=== PATIENT | female | born 1950 | race Caucasian/White ===

== ENCOUNTER 2024-07-12 11:48 | Day surgery (SDC) | payer MEDICARE, SELFPAY ==
--- NOTE | 2024-07-03 11:25 | PCM.HP.BLA ---
History and Physical Date of Admission: 07/12/24 HPI: The patient is a 74 year old female presenting for pre-operative visit. She is scheduled for hysteroscopy D&C with possible polyp resection, for thickened endometrium on pelvic ultrasound and suspected endometrial polyp on 07/12/2024. Procedure discussed along with risks, benefits and complications. Other alternatives discussed for management. Consent form signed? No PAST MEDICAL HISTORY PAST MEDICAL HISTORY Diagnosis Date ? 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 Anxiety and depression ? Arthritis ? Bilateral malignant neoplasm of overlapping sites of breast in female (HCC) ? COAG (chronic open-angle glaucoma) ? Hyperlipidemia ? ADEEL (obstructive sleep apnea) ? Paroxysmal atrial fibrillation (HCC) ? PONV (postoperative nausea and vomiting) ? Reflux esophagitis PAST SURGICAL HISTORY PAST SURGICAL HISTORY Procedure Laterality Date ? AFIB PVI W/COMPL EP STUDY 01/2020 ? BREAST LUMPECTOMY HX Bilateral ? PAST SURGICAL HISTORY OF bilateral mastectomy ? PAST SURGICAL HISTORY OF skin flap for breast cancer ? REMV LUNG,WEDGE RESECTION Right 02/2021 ? RHINOPLASTY W/SEPTAL REPAIR ? TOTAL HIP REPLACEMENT Bilateral CURRENT MEDICATIONS Current Outpatient Medications Medication Sig Dispense Refill ? cyclobenzaprine (FLEXERIL) 10 mg tablet Take 10 mg by mouth. ? traMADol (ULTRAM) 50 mg tablet Take 50 mg by mouth three times a day as needed. ? naloxone 4 mg/actuation nasal spray (NARCAN) Use 4 mg in the nose. ? biotin 5,000 mcg subl Dissolve 5,000 mcg under the tongue once daily. patient swallows ? omega-3 DHA-EPA (FISH OIL) 1,200 (144-216) mg capsule Take 1 capsule by mouth daily with breakfast. ? ZINC ACETATE ORAL Take by mouth. ? calcium carbonate (CALTRATE) 600 mg calcium (1,500 mg) tab Take 600 mg by mouth two times a day. ? folic acid 0.8 mg cap Take 0.8 mg by mouth once daily. ? cholecalciferol (VITAMIN D-3) 50 mcg (2,000 unit) tablet Take 4,000 Units by mouth once daily. ? ferrous sulfate (TORRI-IRON ORAL) Take 18 mg by mouth once daily. ? latanoprost (XALATAN) 0.005 % ophthalmic solution Use 1 Drop in both eyes daily at bedtime. 7.5 mL 3 ? rOPINIRole (REQUIP) 0.5 mg tablet Take 1 mg by mouth daily at bedtime. ? ELIQUIS 5 mg tab(s) Take 1 tablet by mouth twice daily. Okay to restart on 11/27/2021 ? vit C/E/Zn/coppr/lutein/zeaxan (PRESERVISION AREDS-2 ORAL) Take by mouth once daily. ? metoprolol tartrate, short acting, (LOPRESSOR) 50 mg tablet Take 1 tablet by mouth every 8 hours. ? atorvastatin (LIPITOR) 10 mg tablet 20 mg once daily. ? pantoprazole DR (PROTONIX) 40 mg tablet Take 40 mg by mouth once daily. No current facility-administered medications for this visit. ALLERGIES: Penicillins, Adhesive Tape (Rosins), and Nickel PERSONAL HISTORY: SOCIAL HISTORY Social History Tobacco Use ? Smoking status: Never ? Smokeless tobacco: Never Vaping Use ? Vaping status: Never Used Substance Use Topics ? Alcohol use: Not Currently Alcohol/week: 5.9 standard drinks of alcohol Types: 2 Glasses of Wine (5oz), 3 Mixed Drinks per week ? Drug use: No FAMILY HISTORY: FAMILY HISTORY FAMILY HISTORY Problem Relation Age of Onset ? Cancer Mother ? Cancer Father ? Cataract Maternal Grandfather REVIEW OF SYMPTOMS: GENERAL: denies fevers or chills ENDOCRINOLOGY: has not been on steroids Cardiology : denies palpitations or chest pain Respiratory: denies SOB or cough Hematology: denies history of prolonged bleeding or easy bruising or VTE Allergy: Denies history of personal or family history of allergy to anesthesia PHYSICAL EXAMINATION: VITALS: There were no vitals taken for this visit. GENERAL: The patient is well nourished, well hydrated in no acute distress. , The patient is oriented to time, place, and person. IMPRESSION: Thickened endometrium, suspected endometrial polyp PLAN: The risks/benefits/alternatives and personal involved for the planned hysteroscopy D&C with possible polyp resection were reviewed with the patient. Her questions were answered to her satisfaction and she desires to proceed. Consent will be signed day of surgery. I reviewed with her postop instructions and expectations. I have reviewed and updated past medical and surgical history, medications and allergies Assessment & Plan Assessment/Plan (1) Endometrial thickening on ultrasound: (2) Endometrial polyp:
--- NOTE | 2024-07-09 22:14 | PAT.ANE_ITS ---
Pre-Assessment Diagnosis/Proposed Procedure Planned Operative Procedure(s): Hysteroscopy,Dilation and Curettage Anesthesia History Anesthesia History - shearer screen measurer and trimmer: Anesthesia History - shearer screen measurer and trimmer Hx Hospitalization No 07/09/24 15:19 Any Problems With Anesthesia No 07/09/24 15:19 Cholinesterase deficiency No 07/09/24 15:19 You/Your Family Experience No 07/09/24 15:19 fever (hyperthermia) with Relationship Recent Exposure to Contagious Disease Does patient have nerve No 07/09/24 15:19 stimulator Patient instructed to have device shut off --Does patient have Pacemaker or ICD? When Was Last Pacemaker Check QUESTION #4 FULL TEXT: You/Your Family Experience fever (hyperthermia) with Anesthesia Last Oral Intake Last Oral intake: Last Oral Intake NPO since Meds taken in AM with sips of water? Meds patient instructed to take am of surgery PONV PONV - shearer screen measurer and trimmer: PONV - shearer screen measurer and trimmer Female Yes 07/09/24 15:19 HX of Motion Sickness Yes 07/09/24 15:19 HX of N/V After Surgery Yes 07/09/24 15:19 Non-Smoker Yes 07/09/24 15:19 Duration of Surgery greater No 07/09/24 15:19 than 60 minutes Number of Risk Factors 4 07/09/24 15:19 PONV Score Severe Risk 07/09/24 15:19 Respiratory Assessment Respiratory Assessment - shearer screen measurer and trimmer: Respiratory Tract Infection Hx - shearer screen measurer and trimmer Hx Respiratory Tract Infection No 07/09/24 15:19 STOP Sleep Apnea STOP Sleep Apnea - shearer screen measurer and trimmer: STOP Sleep Apnea - shearer screen measurer and trimmer Hx Hypertension No 07/09/24 15:19 Hx Sleep Apnea No 07/09/24 15:19 CPAP BIPAP Do you snore loudly (louder No 07/09/24 15:19 than talking or can be heard Do you often feel tired/ No 07/09/24 15:19 fatigued/ sleepy during daytime? Has anyone observed you stop No 07/09/24 15:19 breathing during sleep? STOP Results Negative 07/09/24 15:19 QUESTION #5 FULL TEXT : Do you snore loudly (louder than talking or can be heard through closed doors)? 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 Specify any problems Hx of Preganancy in last 3 N/A 07/09/24 15:19 Months Nurse Filling Out Transfusion NBUCHER 07/09/24 15:19 & Questions: Date: 07/09/24 07/09/24 15:19 Time: 07/09/24 15:19 Patient unable to answer at this time (ie. confused, unrespo /Reproduction History /Reproductive History - shearer screen measurer and trimmer: /Reproductive Hx- shearer screen measurer and trimmer Hx Now No 07/09/24 15:19 Gestational Age (in weeks): EDC: Hx Hx Para Hx Section SAB No 07/09/24 15:19 PFSH Medical History (Updated 07/09/24 @ 15:38 by Alice Garcia) CPAP (continuous positive airway pressure) dependence Sleep apnea Wears hearing aid Loss of hearing Wears glasses PONV (postoperative nausea and vomiting) Depression Anxiety Arthritis Low iron High cholesterol Post-menopausal Migraine headache Restless legs History of hiatal hernia Diverticulosis Non-smoker GERD (gastroesophageal reflux disease) History of echocardiogram Cardiology follow-up encounter History of atrial fibrillation Cancer Home Medications ?Medication ?Instructions ?Recorded ?Last Taken ?Type acetaminophen 500 mg tablet 1,000 mg PO Q8H PRN PRN pain 07/09/24 07/09/24 History (Acetaminophen Extra Strength) apixaban 5 mg tablet (Eliquis) 5 mg PO BID 07/09/24 07/09/24 History atorvastatin 10 mg tablet 10 mg PO QHS 07/09/24 07/09/24 History cyclobenzaprine 10 mg tablet 10 mg PO QHS 07/09/24 07/09/24 History latanoprost 0.005 % eye drops 1 drp ophthalmic (eye) DAILY 07/09/24 Unknown History metoprolol tartrate 50 mg tablet 50 mg PO TID 07/09/24 07/09/24 History pantoprazole 40 mg tablet,delayed 40 mg PO DAILY 07/09/24 07/09/24 History release phenylephrine HCl 10 mg tablet 10 mg PO Q6H 07/09/24 Unknown History ropinirole 1 mg tablet 1 mg PO TID 07/09/24 07/09/24 History tramadol 50 mg tablet 50 mg PO Q8H PRN PRN severe pain 07/09/24 07/09/24 History vit C 250 mg-vit E 90 mg-zinc 40 1 tab PO BID 07/09/24 07/09/24 History mg-copper 1 [id number] capsule (PreserVision AREDS-2) Allergy/AdvReac Type Severity Reaction Status Date / Time Penicillins (PCN) AdvReac Severe HIVES Verified 07/09/24 15:10 adhesive tape AdvReac Mild Rash Verified 07/09/24 15:10 Surgical History History of rhinoplasty History of lung surgery History of cardiac ablation for atrial fibrillation History of right mastectomy History of bilateral hip replacements Social History Smoking Status: Never smoker Audit: Pertinent Findings Pertinent Findings Consult pertinent findings: October 31, 2023. Dr. Carlos Morrissey cardiology-1. Atrial fibrillation-patient is status post cryoablation. No recurrence since then. Patient is to continue rate control and anticoagulation strategy with apixaban and metoprolol. Recommendation Anesthesia Recommendation Anesthesia recommendation: OPTIMIZED for anesthesia
[2024-07-12] VITALS (9 sets, daily range): BP systolic 109–141; BP diastolic 67–76; PULSE 78–84; RESP 16; TEMP 36.6–36.9; O2SAT 96–100; BMI 31.4
[2024-07-12] MEDS: Acetaminophen 500 MG Tablet 1000 MG PO (12:20)
[2024-07-12] MEDS: Ketorolac 15 MG/ML Vial IV (12:20)
[2024-07-12 12:43] LABS: Hematocrit 39.4 % (37-47); Hemoglobin 12.7 g/dL (12.0-15.0); Mean Corp Hgb Conc 32.2 g/dL (32-36); Mean Corpuscular Hgb 31.6 pg (27.0-32.0); Mean Platelet Vol. 8.1 fl (6.2-12.0); Platelet Count 233 K/mm3 (150-450); RBC Distribution Width CV 13.7 % (11.6-14.6); RBC Distribution Width SD 49.1 fl (35.1-43.9); Red Blood Count 4.02 M/mm3 (4.2-5.4); White Blood Count 7.7 K/mm3 (4.4-11.0)
[2024-07-12 13:10] LABS: Anion Gap 8 (5-15); BUN 13 mg/dL (7-18); BUN/Creat Ratio 13.3 RATIO (10-20); Calcium,Total 9.5 mg/dL (8.5-10.1); Chloride 106 mmol/L (98-107); Creatinine, Serum 0.98 mg/dL (0.55-1.02); EST Glomerular Filtration Rate 59 mL/min (>60); Est Glom Filt Rate - Afr Amer 72 mL/min (>60); Estimated Creatinine Clearance 55.28 ml/min; Glucose 107 mg/dL (74-106); Potassium 3.9 mmol/L (3.5-5.1); Sodium Level 139 mmol/L (136-145)
--- NOTE | 2024-07-12 13:35 | PCM.PRE.AN2 ---
ASA Classification* ASA Classification ASA Classification: 3 Assessment & Plan Anesthesia* Anesthesia Assessment Anesthesia Assessment: Discussed sedation and/or anesthesia options, risks, benefits, and alternatives with patient/parents/legal guardian/POA. Questions invited. The patient/parents/legal guardian/POA seems to understand and agrees to proceed with anesthesia plan. Reviewed the physical assessment, medical history, allergy history and patient home medications list prior to surgery/procedure/anesthetic and documented any changes. Performed airway and anesthesia risk assessments. Anesthesia Type Anesthesia Type: General and MAC Anesthesia Focused Assessment* Temperature: 97.8 F Pulse Rate: 84 Blood Pressure: 141/74 Respiratory Rate: 16 Pulse Ox: 100 Oxygen Delivery Method: Room Air Airway Assessment Mouth opens: >3 cm Mallampati Score: II Neck Range of motion (ROM): Full ROM Focused Labs Anesthesia Preop lab: CBC WBC 7.7 K/mm3 (4.4-11.0) 07/12/24 12:34 RBC 4.02 M/mm3 (4.2-5.4) L 07/12/24 12:34 Hgb 12.7 g/dL (12.0-15.0) 07/12/24 12:34 Hct 39.4 % (37-47) 07/12/24 12:34 Plt Count 233 K/mm3 (150-450) 07/12/24 12:34 CHEMISTRY Potassium 3.9 mmol/L (3.5-5.1) 07/12/24 12:34 Sodium 139 mmol/L (136-145) 07/12/24 12:34 BUN 13 mg/dL (7-18) 07/12/24 12:34 Creatinine 0.98 mg/dL (0.55-1.02) 07/12/24 12:34 Glucose 107 mg/dL (74-106) H 07/12/24 12:34 COAG Pre-Assessment Diagnosis/Proposed Procedure Planned Operative Procedure(s): Hysteroscopy,Dilation and Curettage Anesthesia History 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 When Was Last Pacemaker Check QUESTION #4 FULL TEXT: You/Your Family Experience fever (hyperthermia) with Anesthesia Last Oral Intake Last Oral intake: Last Oral Intake NPO since 09:00 07/12/24 12:17 Meds taken in AM with sips of Yes 07/12/24 12:17 water? Meds patient instructed to see mar 07/12/24 12:17 take am of surgery PONV PONV - business integration analyst: PONV - business integration analyst Female Yes 07/09/24 15:19 HX of Motion Sickness Yes 07/09/24 15:19 HX of N/V After Surgery Yes 07/09/24 15:19 Non-Smoker Yes 07/09/24 15:19 Duration of Surgery greater No 07/09/24 15:19 than 60 minutes Number of Risk Factors 4 07/09/24 15:19 PONV Score Severe Risk 07/09/24 15:19 Height & Weight Height & Weight: Anesthesia: Height & Weight Height 5 ft 5 in 07/12/24 12:17 Weight: 85.729 kg 07/12/24 12:17 Body Mass Index (BMI) 31.4 07/12/24 12:17 Respiratory Assessment Respiratory Assessment - business integration analyst: Respiratory Tract Infection Hx - business integration analyst Hx Respiratory Tract Infection No 07/09/24 15:19 STOP Sleep Apnea STOP Sleep Apnea - business integration analyst: STOP Sleep Apnea - business integration analyst Hx Hypertension No 07/09/24 15:19 Hx Sleep Apnea No 07/09/24 15:19 CPAP BIPAP Do you snore loudly (louder No 07/09/24 15:19 than talking or can be heard Do you often feel tired/ No 07/09/24 15:19 fatigued/ sleepy during daytime? Has anyone observed you stop No 07/09/24 15:19 breathing during sleep? STOP Results Negative 07/09/24 15:19 QUESTION #5 FULL TEXT : Do you snore loudly (louder than talking or can be heard through closed doors)? 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 Specify any problems Hx of Preganancy in last 3 N/A 07/09/24 15:19 Months Nurse Filling Out Transfusion [facility]BU[facility] 07/09/24 15:19 & Questions: Date: 07/09/24 07/09/24 15:19 Time: 15:22 07/09/24 15:19 Patient unable to answer at this time (ie. confused, unrespo /Reproduction History /Reproductive History - business integration analyst: /Reproductive Hx- business integration analyst Hx Now No 07/09/24 15:19 Gestational Age (in weeks): EDC: Hx Hx Para Hx Section SAB No 07/09/24 15:19 Active Medications Active Medications: Current Medications Generic Name Dose Route Start Last Admin Trade Name Freq PRN Reason Stop Dose Admin Acetaminophen 1,000 mg 07/12/24 13:50 07/12/24 12:20 Acetaminophen 500 Mg Tablet PO 07/12/24 13:51 1,000 mg PREOP ONE Administration Ketorolac Tromethamine 15 mg 07/12/24 13:50 07/12/24 12:20 Ketorolac 15 Mg/Ml Vial IV 07/12/24 13:51 15 mg PREOP ONE Administration PFSH Medical History CPAP (continuous positive airway pressure) dependence Sleep apnea Wears hearing aid Loss of hearing Wears glasses PONV (postoperative nausea and vomiting) Depression Anxiety Arthritis Low iron High cholesterol Post-menopausal Migraine headache Restless legs History of hiatal hernia Diverticulosis Non-smoker GERD (gastroesophageal reflux disease) History of echocardiogram Cardiology follow-up encounter History of atrial fibrillation Cancer Home Medications ?Medication ?Instructions ?Recorded ?Last Taken ?Type acetaminophen 500 mg tablet 1,000 mg PO Q8H PRN PRN pain 07/09/24 07/09/24 History (Acetaminophen Extra Strength) apixaban 5 mg tablet (Eliquis) 5 mg PO BID 07/09/24 07/09/24 History atorvastatin 10 mg tablet 10 mg PO QHS 07/09/24 07/09/24 History cyclobenzaprine 10 mg tablet 10 mg PO QHS 07/09/24 07/09/24 History latanoprost 0.005 % eye drops 1 drp ophthalmic (eye) DAILY 07/09/24 Unknown History metoprolol tartrate 50 mg tablet 50 mg PO TID 07/09/24 07/12/24 09:00 History pantoprazole 40 mg tablet,delayed 40 mg PO DAILY 07/09/24 07/12/24 09:00 History release phenylephrine HCl 10 mg tablet 10 mg PO Q6H 07/09/24 Unknown History ropinirole 1 mg tablet 1 mg PO TID 07/09/24 07/09/24 History tramadol 50 mg tablet 50 mg PO Q8H PRN PRN severe pain 07/09/24 07/12/24 09:00 History vit C 250 mg-vit E 90 mg-zinc 40 1 tab PO BID 07/09/24 07/09/24 History mg-copper 1 [id number] capsule (PreserVision AREDS-2) Allergy/AdvReac Type Severity Reaction Status Date / Time Penicillins (PCN) AdvReac Severe HIVES Verified 07/12/24 12:16 adhesive tape AdvReac Mild Rash Verified 07/12/24 12:16 Surgical History History of rhinoplasty History of lung surgery History of cardiac ablation for atrial fibrillation History of right mastectomy History of bilateral hip replacements Social History Smoking Status: Never smoker Review of Systems (Anesthesia) ROS Narrative System reviewed and no additional complaints, except as documented.
--- NOTE | 2024-07-12 13:50 | EMB_PTH ---
PATIENT: NADEEM QUEVEDO LOC: [facility] [place] U#:[id number] AGE/SX: 74/F ROOM: RE07/12/[address]: Dr. Jojo Roper MD : 1950 BED: DIS: 07/12/2024 SPEC #: [id number] RECD: 07/12/24 17:16 STATUS: CASTILLO REPadmini #: [id number] MATTHEW: 07/12/24 13:[address]: Jojo Roper DEPT: SURGICAL PATHOLOGY RECD BY: Juanita Méndez ENTERED: 07/15/24 10:03 SP TYPE: ENDOM BX/C OTHR DR: Dr. Roger Snider, DO Tissues: Endometrium, NOS Procedures: Surgery Specimen Level IV HEADER OPERATION: Hysteroscopy. D&C, polypectomy PRE-OP DIAGNOSIS: Endometrial thickening on ultrasound, endometrial polyp TISSUE SUBMITTED: Endometrial polyps and curettings MICROSCOPIC DIAGNOSIS Endometrial polyps and curettings, D&C and polypectomy: Fragments of benign endometrial polyp with simple cystic hyperplasia without atypia. Strips of benign endometrial epithelium. Fragments of benign ecto and endocervical mucosa. . 07/16/2024 MICROSCOPIC DESCRIPTION Slides are reviewed. GROSS DESCRIPTION Received in fixative is one container labeled with the patient's name and designated Endometrial polyps and curettings. The specimen consists of multiple irregular fragments of osborne-brown soft tissue mixed with mucoid tissue that in aggregate measure 3 x 2.5 x 0.3 cm. Also present in the container is a osborne-pink polyp measuring 1.8 x 1 x 0.5cm. The polyp is bisected. The entire specimen is submitted in two cassettes. Cassette 1 contains the polyp. ALICE. 07/15/2024 TC:5 CPT:06821
--- NOTE | 2024-07-12 14:06 | DCINST_ITS ---
Discharge Instructions Diet Discharge Diet: No restrictions DC O2, CPAP, BIPAP needs Home O2 Discharge instructions: No Dressing / Incision May shower in (days): 1 May resume sexual activity in: 2 weeks Lifting Restrictions: none Dressing / Incision Call your doctor if your incision/area has: Sudden Increased Bleeding and Foul Smelling Discharge Call your doctor if you observe: Fever of 101 or Higher and Using more than 1 pad per hour (for 2 hrs in a row) Follow Up Care Please Follow Up With: Jojo Roper MD When: You do not need a postop appointment. Dr. Roper's office will contact you with the pathology. Call [phone] or send a [employer] message for questions Test Results: Test results from this visit will be discussed in further detail at your follow- up appointment, if applicable. Discharge Plan Admission Primary Reason for Your Visit: Hysteroscopy D&C Attending Provider: Jojo Roper Primary Care Provider: Roger Snider Instructions Print Language: Fijian Discharge Orders/Prescriptions Prescriptions: Continued cyclobenzaprine 10 mg tablet 10 mg PO QHS latanoprost 0.005 % drops 1 drp ophthalmic (eye) DAILY atorvastatin 10 mg tablet 10 mg PO QHS tramadol 50 mg tablet 50 mg PO Q8H PRN PRN (Reason: severe pain) metoprolol tartrate 50 mg tablet 50 mg PO TID Eliquis 5 mg tablet 5 mg PO BID ropinirole 1 mg tablet 1 mg PO TID pantoprazole 40 mg tablet,delayed release (DR/EC) 40 mg PO DAILY acetaminophen [Acetaminophen Extra Strength] 500 mg tablet 1,000 mg PO Q8H PRN PRN (Reason: pain) phenylephrine HCl 10 mg tablet 10 mg PO Q6H PreserVision AREDS-2 250-90-40-1 mg capsule 1 tab PO BID Referrals / Follow Up: Camilo Luther [Other] Disposition Disposition (needs filled in before D/C Order can be placed): Home, Self Care
[2024-07-12] MEDS: Lidocaine 1% /Epi 1:100 (20ml) 20 ML Vial (14:28)
--- NOTE | 2024-07-12 14:30 | OP.PCM_ITS ---
Problems Associated Problem List Diagnoses (1) Endometrial polyp: (2) Endometrial thickening on ultrasound: Operative Report (Standard) Operative Information Date of Procedure: 07/12/24 Pre-Operative Diagnosis: endometrial polyp, thickened endometrium on ultrasound Post-Operative Diagnosis: same Surgery/Procedure Performed: Hysteroscopy D&C with polyp resection forming department end finder: No Type of Anesthesia: MAC/Supplemental/Local RN Documented Start/Stop Times: Operation Date: 07/12/24 13:50 Case Time Into Pre-Op 07/12/24 11:51 Out of Pre-Op 07/12/24 13:55 Anesthesia Start 07/12/24 14:02 Into Room 07/12/24 14:02 Procedure Start 07/12/24 14:16 Procedure End 07/12/24 14:29 Procedure Start Time: 14:16 Procedure Stop Time: 14:29 Select all DRAINS/GRAFTS/IMPLANTS that apply: None Special Medications: none Estimated Blood Loss: 10 Fluids Replaced: 0 Specimen collected: Yes Description of specimen(s) removed: endometrial curettings and polyp Description of surgery: The patient was taken to the OR where she was prepped and draped in dorsal lithotomy position. The weighted speculum was placed in the vagina and the anterior lip of the cervix was grasped with a single-tooth tenaculum. A paracervical block was administered with 1% lidocaine with 1-100,000 epinephrine solution. The cervix was dilated serially with Hegar dilators. The 5mm hysteroscope was placed into the uterine cavity and the above findings were noted. Bilateral tubal ostia were identified. The hysteroscope was removed. A gentle sharp curettage was done of the uterine cavity. The uterine polyp forceps were used to grasp and twist the endometrial polyp off its stalk. The hysteroscope was replaced and the polyp had been removed in its entirety. There were no focal abnormalities noted. The instruments were removed from the vagina. The specimen was handed off and sent to pathology. All sponge and needle counts were correct. Vaginal sweep was performed by me. The patient was awakened and taken to the recovery room in stable condition. Hysteroscopic fluid deficit 50 cc of normal saline Surgical Findings: normal cervix and vagina, anterior left sided endometrial polyp, otherwise atrophic endometrium Complications Complications: No Admit VTE Documentation VTE Present on Admission: No VTE Mechan Device Prophylaxis: SCD's VTE Pharm Prophylaxis ordered?: No
--- NOTE | 2024-07-12 15:50 | PCM.POST.ANE ---
Anesthesia: Postop Eval I Current Vital Signs Temperature: 97.8 F Pulse Rate: 79 Blood Pressure: 109/69 Respiratory Rate: 16 Pulse Ox: 96 Assessment Airway patent: Yes Spontaneous unlabored respirations: Yes nausea: No Vomiting: No Anesthesia Complication: No Fluid Hydration Crystalloid volume administer (ml): 20 Total IV fluid infused: 20 Progress Note Anesthesia document: Postop Eval 1 completed: Yes
--- NOTE | 2024-07-12 15:58 | POSTOPAN2_ITS ---
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 Spontaneous unlabored Yes 07/12/24 15:51 [email or web address] respirations Mental status nausea No 07/12/24 15:51 HYDROMETALLURGICAL [email or web address] Vomiting No 07/12/24 15:51 [email or web address] Anesthesia Postop Eval I: Fluid Summary Crystalloid volume administer 20 07/12/24 15:51 [email or web address] (ml) Colloids volume administered ( ml) Blood Product volume administered (ml) Total IV fluid infused 20 07/12/24 15:51 [email or web address] Anesthesia Postop Eval I: Summary Notes Anesthesia Complication No 07/12/24 15:51 [email or web address] Anesthesia Complication Comment: Post-operative progress note Anesthesia: Postop Eval II Evaluation Mental status: Awake Pain Level: 0 nausea: No Vomiting: No Complications Anesthesia Complication: No
--- NOTE | 2024-07-12 15:58 | PCM.POSTANE2 ---
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 Spontaneous unlabored Yes 07/12/24 15:51 ASSOCIATE [email or web address] respirations Mental status nausea No 07/12/24 15:51 ASSOCIATE [email or web address] Vomiting No 07/12/24 15:51 [email or web address] [email or web address] Anesthesia Postop Eval I: Fluid Summary Crystalloid volume administer 20 07/12/24 15:51 [email or web address] (ml) Colloids volume administered ( ml) Blood Product volume administered (ml) Total IV fluid infused 20 07/12/24 15:51 [email or web address] [email or web address] Anesthesia Postop Eval I: Summary Notes Anesthesia Complication No 07/12/24 15:51 [email or web address] Anesthesia Complication Comment: Post-operative progress note Anesthesia: Postop Eval II Evaluation Mental status: Awake Pain Level: 0 nausea: No Vomiting: No Complications Anesthesia Complication: No
== END 2024-07-12 15:44 | disposition home or self-care (01) ==
LOC: SDC 11:50 → AC 11:51
PROVIDERS: PCP Family Medicine; Referring Provider Obstetrics & Gynecology; Visit Provider Obstetrics & Gynecology
PROC: 0UDB8ZZ Extraction of Endometrium, Via Natural or Artificial Opening Endoscopic (ICD-10-PCS; CPT 58558; principal; 2024-07-12 13:40)
DX: N85.01 Benign endometrial hyperplasia (principal); I48.0 Paroxysmal atrial fibrillation; E78.00 Pure hypercholesterolemia, unspecified; Z79.01 Long term (current) use of anticoagulants; Z79.899 Other long term (current) drug therapy
CPT/HCPCS: 58558; 00952; 80048; 85027; 88305; A4216